=== PATIENT | female | born 1945 | race Caucasian/White ===

== ENCOUNTER → 2019-09-25 | Outpatient (CLI) | payer MEDICARE ==
--- NOTE | 2019-09-25 07:57 | XR ---
EXAMINATION TYPE: XR hand complete RT DATE OF EXAM: 09/25/2019 COMPARISON: NONE HISTORY: 74 year-old female R22.30, fourth finger swelling TECHNIQUE: 3 views FINDINGS: No acute fracture, subluxation, or dislocation. No retained radiopaque foreign body. No periostitis o r osteolysis. Mild marginal spurring at the second DIP joint and mild at the base of the thumb. IMPRESSION: No acute osseous abnormality seen.
== END | disposition home or self-care (01) ==
LOC: RADXRMAIN 06:45
PROVIDERS: ATTEND Family Medicine
DX: R22.30 Localized swelling, mass and lump, unspecified upper limb (principal)

== ENCOUNTER → 2019-11-25 | Outpatient (CLI) | payer MEDICARE ==
--- NOTE | 2019-11-26 07:57 | BD ---
EXAMINATION TYPE: Axial Bone Density DATE OF EXAM: 11/25/2019 COMPARISON: NONE CLINICAL HISTORY: Postmenopausal female. Hypothyroidism. Height: 63 Weight: 218.8 FRAX RISK QUESTIONS: Alcohol (3 or more units per day): no Family History (Parent hip fracture): yes Glucocorticoids (More than 3mos): no (Ex: prednisone, prednisolone, methylprednisolone, dexamethasone, and hydrocortisone). History of Fracture in Adulthood: yes Secondary Osteoporosis: 1. Type 1 Diabetes: no 2. Hyperthyroidism: no 3. Menopause before 45: no 4. Malnutrition: no 5. Chronic liver disease: no Rheumatoid Arthritis: yes Current Tobacco Use: no RISK FACTORS HISTORY OF: Surgery to Spine/Hip(right/left)/Wrist (right/left): no Family History of Osteoporosis: yes Active: no Diet low in dairy products/other sources of calcium: yes Postmenopausal woman: age 54 Lost more than 2 inches in height since high school: yes MEDICATIONS: vitamins Thyroid Medications: levothyroxine How Lon years Additional History: EXAM MEASUREMENTS: Bone mineral densitometry was performed using the [employer] System. Bone mineral density as measured about the Lumbar spine is: ----- L1-L4(G/cm2): 1.294 T Score Values are as follows: ----- L2: -0.2 ----- L3: 2.3 ----- L4: 1.4 ----- L1-L4: 0.9 Bone mineral density : baseline Bone mineral density about the R hip (g/cm2): 0.992 Bone mineral density about the L hip (g/cm2): 0.962 T Score values are as follows: -----R Neck: -0.3 -----L Neck: -0.5 -----R Total: 0.4 -----L Total: 0.5 Bone mineral density : baseline IMPRESSION: Normal (Values between +1 and -1 indicate normal bone mass). Consider repeating this study in 5 year s or sooner if there is some new clinical indication. NOTE: T-SCORE=SD OF THE YOUNG ADULT MEAN.
--- NOTE | 2019-12-03 11:10 | MM ---
Reason for exam: screening (asymptomatic). Last mammogram was performed 1 year ago. History: Patient is postmenopausal. Family history of breast cancer in mother and breast cancer in 2 maternal aunts. Benign excisional biopsy of the left breast, 2018. Physical Findings: A clinical breast exam by your physician is recommended on an annual basis and results should be correlated with mammographic findings. MG 3D Screening Mammo W/Cad Bilateral CC and MLO view(s) were taken. Prior study comparison: December 03, 2018, mammogram, performed at [facility]. November 29, 2017, mammogram, performed at [facility]. The breast tissue is heterogeneously dense. This may lower the sensitivity of mammography. Stable benign calcifications. There is no discrete abnormality. No significant changes when compared with prior studies. ASSESSMENT: Benign, BI-RAD 2 RECOMMENDATION: Routine screening mammogram of both breasts in 1 year.
== END | disposition home or self-care (01) ==
LOC: RADMAMWWP 14:55
PROVIDERS: ATTEND Family Medicine
DX: Z12.31 Encounter for screening mammogram for malignant neoplasm of breast (principal); Z78.0 Asymptomatic menopausal state; E03.9 Hypothyroidism, unspecified
CPT/HCPCS: 77063; 77067; 77080

== ENCOUNTER → 2019-12-09 | Outpatient (CLI) | payer MEDICARE ==
--- NOTE | 2019-12-09 11:45 | US ---
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 Pt on thyroid meds GLAND SIZE: Right Lobe: 5.5 x 1.5 x 2.0 cm Overall Parenchyma: homogenous Left Lobe: 5.0 x 1.3 x 1.5 cm Overall Parenchyma: homogeneous Isthmus Thickness: 0.3 cm NODULES RIGHT: # of nodules measured on right: 1 1. 0.9 X 0.6 x 1.0 cm hypoechoic cystic nodule at the mid pole with well-defined margins; . This n odule is wider than tall and shows no intranodular vascularity. LEFT: # of nodules measured on left: 1 1. 2.6 X 1.0 x 1.3 cm hypoechoic cystic nodule with internal septations at the lower pole with well -defined margins; . This nodule is wider than tall and shows no intranodular vascularity. ISTHMUS: # of nodules measured in the isthmus: 0 Bilateral neck scanned, Lymph node on Rt neck 1.3 x 0.5 x 0.6 cm; Largest on Lt neck is 1.5 x 0.3 x 1.2 cm IMPRESSION: Nonspecific thyroid nodularity. The need to biopsy should be made on a clinical basis.
[2019-12-09 12:16] LABS: T4, Free (Free Thyroxine) 1.31 ng/dL (0.78-2.19)
== END | disposition home or self-care (01) ==
LOC: RADUSWWP 10:40
PROVIDERS: ATTEND Internal Medicine Endocrinology, Diabetes & Metabolism
DX: E04.2 Nontoxic multinodular goiter (principal)
CPT/HCPCS: 76536; 84439; 84443

== ENCOUNTER → 2020-12-30 | Outpatient (CLI) | payer MEDICARE ==
--- NOTE | 2021-01-02 11:58 | MM ---
Reason for exam: screening (asymptomatic). Last mammogram was performed 1 year and 1 month ago. History: Patient is postmenopausal. Family history of breast cancer in mother and breast cancer in 2 maternal aunts. Benign excisional biopsy of the left breast, 2018. Physical Findings: A clinical breast exam by your physician is recommended on an annual basis and results should be correlated with mammographic findings. MG 3D Screening Mammo W/Cad Bilateral CC, MLO, and XCCL view(s) were taken. Prior study comparison: November 25, 2019, bilateral MG 3d screening mammo w/cad. December 03, 2018, mammogram, performed at [facility]. November 29, 2017, mammogram, performed at [facility]. There are scattered fibroglandular densities. No significant changes when compared with prior studies. ASSESSMENT: Benign, BI-RAD 2 RECOMMENDATION: Routine screening mammogram of both breasts in 1 year.
== END | disposition home or self-care (01) ==
LOC: RADMAMWWP 07:29
PROVIDERS: ATTEND Family Medicine
DX: Z12.31 Encounter for screening mammogram for malignant neoplasm of breast (principal)
CPT/HCPCS: 77063; 77067

== ENCOUNTER → 2021-07-03 | Outpatient (CLI) | payer MEDICARE ==
--- NOTE | 2021-07-03 08:13 | US ---
EXAMINATION TYPE: US thyroid st tissue head/neck DATE OF EXAM: 07/03/2021 COMPARISON: NONE CLINICAL HISTORY: E04.2 NON TOXIC MULTINODULAR GOITER. GLAND SIZE: Right Lobe: cm Overall Parenchyma: Left Lobe: cm Overall Parenchyma: Isthmus Thickness: cm NODULES RIGHT: # of nodules measured on right: 1. X x cm, , , nodule, which is , with margins, echogenic foci. Prior size: x x cm 2. X x cm, , , nodule, which is , with margins, echogenic foci. Prior size: x x cm 3. X x cm, , , nodule, which is , with margins, echogenic foci. Prior size: x x cm LEFT: # of nodules measured on left: 1. X x cm, , , nodule, which is , with margins, echogenic foci. Prior size: x x cm 2. X x cm, , , nodule, which is , with margins, echogenic foci. Prior size: x x cm 3. X x cm, , , nodule, which is , with margins, echogenic foci. Prior size: x x cm ISTHMUS: # of nodules measured in the isthmus: 1. X x cm , nodule, which is , with margins, echogenic foci. Prior size: x x cm Bilateral neck scanned, no evidence of lymphadenopathy. IMPRESSION: 2017 ACR TI-RADS LEVEL: *Highest TI-RADS level nodule reported EXAMINATION TYPE: US thyroid st tissue head/neck DATE OF EXAM: 07/03/2021 COMPARISON: NONE CLINICAL HISTORY: E04.2 NON TOXIC MULTINODULAR GOITER. GLAND SIZE: Right Lobe: 4.4 x 1.9 x 1.7 cm Overall Parenchyma: homogenous Left Lobe: 4.4 x 1.4 x 1.6 cm Overall Parenchyma: homogeneous Isthmus Thickness: 0.3 cm NODULES RIGHT: # of nodules measured on right: 1 1. 0.8 X 0.6 x 0.5 cm, lower, cystic or almost completely cystic, anechoic nodule, which is taller than wide, with smooth margins, without echogenic foci. Prior size:0.9 X 0.6 x 1.0 cm LEFT: # of nodules measured on left: 1. 1.3 X 0.7 x 0.8 cm, lower lateral, cystic or almost completely cystic, anechoic nodule, which is wider than tall, with smooth margins, without echogenic foci. Prior size:2.6 X 1.0 x 1.3 cm ISTHMUS: # of nodules measured in the isthmus: 0 Bilateral neck scanned, no evidence of lymphadenopathy. IMPRESSION: Non specific thyroid nodularity
[2021-07-03 14:37] LABS: T4, Free (Free Thyroxine) 1.19 ng/dL (0.800-1.800)
== END | disposition home or self-care (01) ==
LOC: RADUSWWP 06:48
PROVIDERS: ATTEND Internal Medicine Endocrinology, Diabetes & Metabolism
DX: E04.2 Nontoxic multinodular goiter (principal)
CPT/HCPCS: 76536; 84439; 84443

== ENCOUNTER → 2022-01-31 | Outpatient (CLI) | payer MEDICARE ==
--- NOTE | 2022-01-31 13:50 | US ---
EXAMINATION TYPE: US thyroid st tissue head/neck DATE OF EXAM: 01/31/2022 COMPARISON: NONE CLINICAL HISTORY: E04.1 NONTOXIC SINGLE THYROID NODULE. thyroid nodules GLAND SIZE: Right Lobe: 4.9 x 2.2 x 1.8 cm Overall Parenchyma: homogenous Left Lobe: 4.9 x 1.5 x 1.4 cm Overall Parenchyma: homogeneous Isthmus Thickness: .4 cm NODULES RIGHT: # of nodules measured on right: 1 1. .9 X .7 x .7 cm, lower , cystic or almost completely cystic, anechoic nodule, which is wider th an tall, with smooth margins, without echogenic foci. Prior size: .8 x .6 x .5 cm LEFT: # of nodules measured on left: 0 ISTHMUS: # of nodules measured in the isthmus: 0 Bilateral neck scanned, no evidence of lymphadenopathy. IMPRESSION: Stable nonspecific thyroid nodularity.
[2022-01-31 15:16] LABS: T4, Free (Free Thyroxine) 1.07 ng/dL (0.800-1.800)
== END | disposition home or self-care (01) ==
LOC: RADUSWWP 08:35
PROVIDERS: ATTEND Internal Medicine Endocrinology, Diabetes & Metabolism
DX: E04.1 Nontoxic single thyroid nodule (principal)
CPT/HCPCS: 76536; 84439; 84443

== ENCOUNTER → 2022-10-10 | Outpatient (CLI) | payer MEDICARE ==
[2022-10-10 17:27] LABS: Basophils # (A) 0.04 X 10*3/uL (0.00-0.10); Basophils % (A) 0.9 %; Eosinophils # (A) 0.13 X 10*3/uL (0.04-0.35); HCT 38.2 % (37.2-46.3); HGB 13.2 d/dL (12.0-15.0); Lymphocytes # (A) 1.49 X 10*3/uL (0.90-5.00); Lymphocytes % (A) 34.8 %; MCH 33.7 pg (27.0-32.0); MCHC 34.6 d/dL (32.0-37.0); MCV 97.4 FL (80.0-97.0); Mean Platelet Volume 9.8 FL (9.5-12.2); Monocytes # (A) 0.48 X 10*3/uL (0.20-1.00); Monocytes % (A) 11.2 %; NRBC Per 100 WBC 0 X 10*3/uL (0.00-0.01); Neutrophils # (A) 2.13 X 10*3/uL (1.80-7.70); Neutrophils % (A) 49.9 %; Platelet Count 195 X 10*3/uL (140-440); RBC 3.92 X 10*6/uL (4.10-5.20); RDW 12.5 % (11.5-14.5); WBC 4.28 X 10*3/uL (4.50-10.00)
[2022-10-10 17:35] LABS: ALT 21 U/L (8-44); AST 24 U/L (13-35); Albumin 4.8 d/dL (3.8-4.9); Albumin/Globulin Ratio 2.18 Ratio (1.60-3.17); Alkaline Phosphatase 125 U/L (41-126); BUN/Creat Ratio 38.29 Ratio (12.00-20.00); Blood Urea Nitrogen 26.8 mg/dL (9.0-27.0); Calcium 10.2 mg/dL (8.7-10.3); Carbon Dioxide 30.4 mmol/L (21.6-31.8); Chloride 99 mmol/L (96-109); Globulin 2.2 d/dL (1.6-3.3); Glucose 101 mg/dL (70-110); Potassium 4.1 mmol/L (3.5-5.5); Sodium 142 mmol/L (135-145); Total Bilirubin 0.3 mg/dL (0.3-1.2)
[2022-10-11 00:25] LABS: Phenytoin (Dilantin) 12.5 UG/ML (10.0-20.0)
== END | disposition home or self-care (01) ==
LOC: LABWHC1 08:02
PROVIDERS: ATTEND Psychiatry & Neurology Neurology
DX: G40.019 Localization-related (focal) (partial) idiopathic epilepsy and epileptic syndromes with seizures of localized onset, intractable, without status epilepticus (principal); E08.610 Diabetes mellitus due to underlying condition with diabetic neuropathic arthropathy; R53.83 Other fatigue
CPT/HCPCS: 36415; 80053; 80185; 85025

== ENCOUNTER → 2023-01-25 | Outpatient (CLI) | payer MEDICARE ==
--- NOTE | 2023-01-25 10:07 | US ---
EXAMINATION TYPE: US thyroid st tissue head/neck DATE OF EXAM: 01/25/2023 COMPARISON: NONE CLINICAL INDICATION: Female, 77 years old with history of E04.1 NONTOXIC SINGLE THYROID NODULE; GLAND SIZE: Right Lobe: 5.0 x 1.8 x 2.0 cm Overall Parenchyma: homogneous Left Lobe: 4.2 x 1.8 x 1.7 cm Overall Parenchyma: homogenous Isthmus Thickness: 0.4 cm NODULES RIGHT: # of nodules measured on right: 2 1. 1.0 X 0.8 x 0.9 cm, upper medial, cystic or almost completely cystic, anechoic nodule, which is wider than tall, with smooth margins, without echogenic foci. Prior size: 0.9 x 0.7 x 0.7 cm 2. 0.4 X 0.4 x 0.3 cm, upper lateral, cystic or almost completely cystic, very hypoechoic nodule, w hich is taller than wide, with smooth margins, with echogenic foci. Prior size: Seen but not measured LEFT: # of nodules measured on left: 0 ISTHMUS: # of nodules measured in the isthmus: 0 Bilateral neck scanned, no evidence of lymphadenopathy. Multiple small hypo/anechoic areas noted bilaterally IMPRESSION: Subcentimeter cysts noted. No solid masses identified.
[2023-01-25 16:30] LABS: T4, Free (Free Thyroxine) 1.17 ng/dL (0.80-1.80)
== END | disposition home or self-care (01) ==
LOC: RADUSWWP 09:10
PROVIDERS: ATTEND Internal Medicine Endocrinology, Diabetes & Metabolism
DX: E04.2 Nontoxic multinodular goiter (principal)
CPT/HCPCS: 76536; 84439; 84443

== ENCOUNTER → 2023-05-29 | Outpatient (CLI) | payer MEDICARE ==
[2023-05-29 11:13] LABS: Basophils # (A) 0.04 X 10*3/uL (0.00-0.10); Basophils % (A) 1.1 %; Eosinophils # (A) 0.09 X 10*3/uL (0.04-0.35); Eosinophils % (A) 2.4 %; HCT 38.8 % (37.2-46.3); HGB 13.2 g/dL (12.0-15.0); Lymphocytes # (A) 1.39 X 10*3/uL (0.90-5.00); Lymphocytes % (A) 37.4 %; Mean Platelet Volume 9.7 FL (9.5-12.2); Monocytes # (A) 0.42 X 10*3/uL (0.20-1.00); Monocytes % (A) 11.3 %; NRBC Per 100 WBC 0 X 10*3/uL (0.00-0.01); Neutrophils # (A) 1.77 X 10*3/uL (1.80-7.70); Neutrophils % (A) 47.5 %; Platelet Count 208 X 10*3/uL (140-440); RBC 3.88 X 10*6/uL (4.10-5.20); RDW 12.7 % (11.5-14.5); WBC 3.72 X 10*3/uL (4.50-10.00)
[2023-05-29 17:34] LABS: BUN/Creat Ratio 31.43 Ratio (12.00-20.00); Glucose 101 mg/dL (70-110)
[2023-05-29 17:35] LABS: ALT 17 U/L (8-44); AST 22 U/L (13-35); Albumin 4.9 g/dL (3.8-4.9); Albumin/Globulin Ratio 2.04 Ratio (1.60-3.17); Alkaline Phosphatase 111 U/L (41-126); Calcium 10.2 mg/dL (8.7-10.3); Chloride 100 mmol/L (96-109); Globulin 2.4 g/dL (1.6-3.3); Potassium 4.2 mmol/L (3.5-5.5); Sodium 142 mmol/L (135-145); Total Bilirubin 0.3 mg/dL (0.3-1.2); Total Protein 7.3 g/dL (6.2-8.2)
== END | disposition home or self-care (01) ==
LOC: LABWHC1 07:55
PROVIDERS: ATTEND Psychiatry & Neurology Neurology
DX: G40.019 Localization-related (focal) (partial) idiopathic epilepsy and epileptic syndromes with seizures of localized onset, intractable, without status epilepticus (principal)
CPT/HCPCS: 36415; 80053; 80185; 85025

== ENCOUNTER → 2023-11-08 | Outpatient (CLI) | payer MEDICARE ==
--- NOTE | 2023-11-11 07:27 | MR ---
EXAMINATION TYPE: MR brain and iac wo/w con DATE OF EXAM: 11/08/2023 COMPARISON: None HISTORY: Philippe hearing loss, dizziness, unsteady gait. TECHNIQUE: Multiplanar, multisequence images of the brain and brainstem is performed without and with IV contras t, utilizing 9 mL intravenous Gadavist . Findings: On the T1-weighted sagittal images, the midline structures including the craniovertebral junction rel ationships appear normal. The ventricles, basal cisterns and sulci over the convexities are within normal limits for the patien t's age and there is no mass effect or shift of midline structures A few small scattered foci of abnormal increased signal intensity within the white matter of both cer ebral hemispheres. This is a nonspecific finding but most likely represents chronic ischemic white ma tter change.. Based on diffusion-weighted imaging, there is no diffusion restriction or acute ischem ic event. Following contrast administration, there is no pathological enhancement. The posterior fossa including the brainstem, fourth ventricle and cerebellar pontine angles are ellen l. There is no mass or pathologic enhancement. Intraorbital contents are normal and symmetric. Visualized paranasal sinuses and mastoid air cells ar e well aerated. IMPRESSION: 1. No abnormality of the internal auditory canals or cerebellar pontine angles. 2. Mild multifocal chronic ischemic white matter change. 3. No acute ischemic event. 4. No mass, mass effect or pathological enhancement throughout the brain parenchyma.
== END | disposition home or self-care (01) ==
LOC: RADMRIMAIN 06:28
PROVIDERS: ATTEND Psychiatry & Neurology Neurology
DX: G40.009 Localization-related (focal) (partial) idiopathic epilepsy and epileptic syndromes with seizures of localized onset, not intractable, without status epilepticus
CPT/HCPCS: 70553

== ENCOUNTER → 2023-12-23 | Outpatient (CLI) | payer MEDICARE ==
[2023-12-23 10:44] LABS: Basophils # (A) 0.04 X 10*3/uL (0.00-0.10); Eosinophils # (A) 0.09 X 10*3/uL (0.04-0.35); Eosinophils % (A) 2.3 %; HCT 36.3 % (37.2-46.3); HGB 12.5 g/dL (12.0-15.0); Lymphocytes # (A) 1.34 X 10*3/uL (0.90-5.00); Lymphocytes % (A) 34.9 %; MCH 34.8 pg (27.0-32.0); MCHC 34.4 g/dL (32.0-37.0); MCV 101.1 FL (80.0-97.0); Mean Platelet Volume 9.5 FL (9.5-12.2); Monocytes # (A) 0.42 X 10*3/uL (0.20-1.00); Monocytes % (A) 10.9 %; NRBC Per 100 WBC 0 X 10*3/uL (0.00-0.01); Neutrophils # (A) 1.94 X 10*3/uL (1.80-7.70); Neutrophils % (A) 50.6 %; Platelet Count 219 X 10*3/uL (140-440); RBC 3.59 X 10*6/uL (4.10-5.20); RDW 12.5 % (11.5-14.5); WBC 3.84 X 10*3/uL (4.50-10.00)
[2023-12-23 11:34] LABS: Erythrocyte Sedimentation Rate 12 mm/Hr (0-30)
[2023-12-23 11:45] LABS: ALT 16 U/L (8-44); AST 22 U/L (13-35); Albumin 4.6 g/dL (3.8-4.9); Albumin/Globulin Ratio 2.09 Ratio (1.60-3.17); Alkaline Phosphatase 119 U/L (41-126); Blood Urea Nitrogen 13.3 mg/dL (9.0-27.0); C Reactive Protein <0.30 mg/dL (0.00-0.80); Calcium 9.5 mg/dL (8.7-10.3); Carbon Dioxide 21.4 mmol/L (21.6-31.8); Chloride 101 mmol/L (96-109); Globulin 2.2 g/dL (1.6-3.3); Glucose 114 mg/dL (70-110); Potassium 3.8 mmol/L (3.5-5.5); Rheumatoid Factor, Qnt <15 IU/mL (0-15); Sodium 140 mmol/L (135-145); T4, Free (Free Thyroxine) 1.09 ng/dL (0.80-1.80); Total Bilirubin 0.3 mg/dL (0.3-1.2); Total Protein 6.8 g/dL (6.2-8.2)
[2023-12-23 19:17] LABS: ANA Pattern Homogenous
== END | disposition home or self-care (01) ==
LOC: LABWHC1 07:33
PROVIDERS: ATTEND Psychiatry & Neurology Neurology
CPT/HCPCS: 36415; 80053; 82306; 82607; 82746; 83036; 84165; 84439; 84443; 84481; 85025; 85652; 86038; 86039; 86140; 86431

== ENCOUNTER → 2024-01-15 | Outpatient (CLI) | payer MEDICARE ==
[2024-01-16 02:57] LABS: Protein, Total 7.1 g/dL (6.2-8.2)
[2024-01-16 04:52] LABS: Anti-DNA, DS unit <1.0 IU/mL; DNA Double-Stranded Negative (Negative)
[2024-01-17 10:57] LABS: Albumin 4.49 g/dL (3.80-4.90); Gamma Globulin 0.77 g/dL (0.70-1.50)
== END | disposition home or self-care (01) ==
LOC: LABWHC1 15:42
PROVIDERS: ATTEND Psychiatry & Neurology Neurology
DX: M05.69 Rheumatoid arthritis of multiple sites with involvement of other organs and systems (principal); G62.9 Polyneuropathy, unspecified
CPT/HCPCS: 36415; 84165; 84425; 86038; 86039; 86225; 86235; 86334; 86431

== ENCOUNTER → 2024-01-15 | Outpatient (CLI) | payer MEDICARE ==
--- NOTE | 2024-01-15 15:56 | US ---
EXAMINATION TYPE: US thyroid st tissue head/neck DATE OF EXAM: 01/15/2024 COMPARISON: NONE CLINICAL INDICATION: Female, 78 years old with history of R94.6 ABN THY RESULTS R22.0 SWELLING; Thyro id nodules on meds. TECHNIQUE: Grayscale and color Doppler imaging of the thyroid gland. FINDINGS: GLAND SIZE: Right Lobe: 4.7 x 2.0 x 2.0 cm Overall Parenchyma: homogeneous Left Lobe: 4.2 x 1.6 x 1.6 cm Overall Parenchyma: homogeneous Isthmus Thickness: .4 cm NODULES RIGHT: # of nodules measured on right: 1 1. 1.1 X .9 x .8 cm, upper medial, Prior size: 1.0 x .8 x .9 cm TIRADS Score: 0 TIRADS Category 1: Benign Composition: Cystic or almost completely cystic (0 points). Recommendation: No FNA LEFT: # of nodules measured on left: 0 ISTHMUS: # of nodules measured in the isthmus: 0 Bilateral neck scanned, no evidence of lymphadenopathy. IMPRESSION: No clinically significant thyroid nodules. [facility], , 01/15/2024 3:54 PM
== END | disposition home or self-care (01) ==
LOC: RADUSWWP 14:37
PROVIDERS: ATTEND Family Medicine
DX: E04.1 Nontoxic single thyroid nodule (principal); R94.6 Abnormal results of thyroid function studies; R22.0 Localized swelling, mass and lump, head
CPT/HCPCS: 76536

== ENCOUNTER 2024-06-01 17:59 | Emergency (ER) | payer MEDICARE ==
[2024-06-01 18:22] VITALS: TEMP 97.8
--- NOTE | 2024-06-01 18:27 | ED ---
Fall HPI - General Chief Complaint: Extremity Injury, Lower Stated Complaint: Fall-L knee injury Time Seen by Provider: 06/01/24 18:24 Source: patient, family, RN notes reviewed, old records reviewed Mode of arrival: wheelchair Limitations: no limitations - History of Present Illness Initial Comments: This is a 79 female after fall with left knee pain. 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 ROS Other: All systems not noted in ROS Statement are negative. Past Medical History Past Medical History: Asthma, Hyperlipidemia, Hypertension, Seizure Disorder Past Surgical History: Tonsillectomy Additional Past Surgical History / Comment(s): cataracts Smoking Status: Never smoker Past Alcohol Use History: None Reported Past Drug Use History: None Reported General Exam Limitations: no limitations General appearance: alert, in no apparent distress Head exam: Present: atraumatic, normocephalic, normal inspection Eye exam: Present: normal appearance, PERRL, EOMI. Absent: scleral icterus, conjunctival injection, periorbital swelling ENT exam: Present: normal exam, mucous membranes moist Neck exam: Present: normal inspection. Absent: tenderness, meningismus, lymphadenopathy Respiratory exam: Present: normal lung sounds bilaterally. Absent: respiratory distress, wheezes, rales, rhonchi, stridor Cardiovascular Exam: Present: regular rate, normal rhythm, normal heart sounds. Absent: systolic murmur, diastolic murmur, rubs, gallop, clicks GI/Abdominal exam: Present: soft, normal bowel sounds. Absent: distended, tenderness, guarding, rebound, rigid Extremities exam: Present: normal inspection, full ROM, normal capillary refill. Absent: tenderness, pedal edema, joint swelling, calf tenderness Back exam: Present: normal inspection Neurological exam: Present: alert, oriented X3, CN II-XII intact Psychiatric exam: Present: normal affect, normal mood Skin exam: Present: warm, dry, intact, normal color. Absent: rash Course Vital Signs 06/01/24 06/01/24 18:17 20:42 Temperature 97.8 F Pulse Rate 87 88 Respiratory 16 20 Rate Blood Pressure 142/89 141/90 O2 Sat by Pulse 99 97 Oximetry - Reevaluation(s) Reevaluation #1: 06/02/24 00:46 Medical records reviewed Reevaluation #2: 06/02/24 00:46 Patient symptoms improved Reevaluation #3: 06/02/24 00:46 Patient informed of results questions answered Reevaluation #4: Was pt. sent in by a medical professional or institution ([place] Danielle, ENGINE BUILDUP MECHANIC, urgent care, hospital, or senior care...) When possible be specific @ -no Did you speak to anyone other than the patient for history (EMS, parent, family, police, friend...)? What history was obtained from this source @ -no Did you review nursing and triage notes (agree or disagree)? Why? @ -agree Are old charts reviewed (outside hosp., previous admission, EMS record, old EKG, old radiological studies, urgent care reports/EKG's, senior care records)? Report findings @ -yes Differential Diagnosis (chest pain, altered mental status, abdominal pain women, abdominal pain men, vaginal bleeding, weakness, fever, dyspnea, syncope, headache, dizziness, GI bleed, back pain, seizure, CVA, palpatations, mental health, musculoskeletal)? @ -prior EKG interpreted by me (3pts min.). @ -yes X-rays interpreted by me (1pt min.). @ -yes negative for acute disease CT interpreted by me (1pt min.). @ -no U/S interpreted by me (1pt. min.). @ -no What testing was considered but not performed or refused? (CT, X-rays, U/S, labs)? Why? @ -none What meds were considered but not given or refused? Why? @ -none Did you discuss the management of the patient with other professionals (professionals i.e. [place] Danielle, ENGINE BUILDUP MECHANIC, lab, RT, psych nurse, social media specialist, nursing coordinator, teacher, employment security officer, community case manager)? Give summary @ -no Was smoking cessation discussed for >3mins.? @ -no Was critical care preformed (if so, how long)? @ -no Were there social determinants of health that impacted care today? How? (Homelessness, low income, unemployed, alcoholism, drug addiction, transportation, low edu. Level, literacy, decrease access to med. care, senior care, rehab)? @ -none Was there de-escalation of care discussed even if they declined (Discuss DNR or withdrawal of care, Hospice)? DNR status @ -no What co-morbidities impacted this encounter? (DM, HTN, Smoking, COPD, CAD, Cancer, CVA, ARF, Chemo, Hep., AIDS, mental health diagnosis, sleep apnea, morbid obesity)? @ -none Was patient admitted / discharged? Hospital course, mention meds given and route, prescriptions, significant lab abnormalities, going to OR and other pertinent info. @ - Undiagnosed new problem with uncertain prognosis? @ -no Drug Therapy requiring intensive monitoring for toxicity (Heparin, Nitro, Insulin, Cardizem)? @ -no Were any procedures done? @ -no Diagnosis/symptom? @ - Acute, or Chronic, or Acute on Chronic? @ -Acute Uncomplicated (without systemic symptoms) or Complicated (systemic symptoms)? @ -Complicated Side effects of treatment? @ -no Exacerbation, Progression, or Severe Exacerbation? @ -exacerbation Poses a threat to life or bodily function? How? (Chest pain, [place], [place], pneumonia, PE, COPD, DKA, ARF, appy, cholecystitis, CVA, Diverticulitis, Homicidal, Suicidal, threat to staff... and all critical care pts) @ -yes Medical Decision Making - Medical Decision Making 79 female with fall with left knee pain knee effusion no traumatic injury noted will follow-up with orthopedics for pain control - Radiology Data Radiology results: report reviewed (X-ray left knee negative for acute disease), image reviewed Disposition Clinical Impression: Left knee pain, Effusion, left knee, Fall Disposition: HOME SELF-CARE Condition: Good Instructions (If sedation given, give patient instructions): Knee Sprain (ED), Knee Pain (ED) Is patient prescribed a controlled substance at d/c from ED?: No Referrals: Jessica Aaron MD [Primary Care Provider] - 1-2 days Kailey Nunes [Doctor of Osteopathic Medicine] - 1-2 days Time of Disposition: 20:00
[2024-06-01] MEDS: IBUPROFEN 800 MG TAB PO STA (19:03)
[2024-06-01] MEDS: ACETAMINOPHEN TAB 500 MG TAB PO STA (19:04)
--- NOTE | 2024-06-01 20:00 | XR ---
EXAMINATION TYPE: XR knee complete LT DATE OF EXAM: 06/01/2024 7:49 PM COMPARISON: None CLINICAL INDICATION: Female, 79 years old with history of pain, pain TECHNIQUE: XR knee complete LT XX views submitted. FINDINGS: No evidence of any acute osseous pathology, soft tissue swelling, or joint effusion is no diallo. Tricompartmental osteophyte formation involving the femoral condyles, tibial plateau and patella . Severe medial joint space narrowing. Quadriceps tendon enthesophyte on the patella. IMPRESSION: 1. No acute osseous pathology. 2. Severe medial knee osteoarthritic changes. [facility], , 06/01/2024 7:58 PM
[2024-06-01 20:45] VITALS: BP 141/90; PULSE 88; RESP 20
== END 2024-06-01 20:44 | disposition home or self-care (01) ==
LOC: EC 17:59
DX: M25.462 Effusion, left knee (principal); Z88.0 Allergy status to penicillin; W19.XXXA Unspecified fall, initial encounter
CPT/HCPCS: 99283